=== PATIENT | male | born 1940 | race Caucasian/White ===

== ENCOUNTER 2018-12-21 08:52 | Emergency (ER) | payer MEDICARE | END 2018-12-21 10:46 | disposition home or self-care (01) | LOC: EDH 08:52 | DX: J03.90 Acute tonsillitis, unspecified (principal); I10 Essential (primary) hypertension; E78.5 Hyperlipidemia, unspecified | CPT/HCPCS: 87880 ==

== ENCOUNTER 2018-12-23 21:41 | Emergency (ER) | payer MEDICARE ==
[2018-12-23] MEDS ORDERED: DEXAMETHASONE SOD PHOSPHATE 10MG/ML 1ML VIAL ONE (22:36)
[2018-12-23] MEDS ORDERED: ACETAMINOPHEN EXTRA STRENGTH 500 MG TABLET ONE (22:37)
== END 2018-12-24 00:10 | disposition home or self-care (01) ==
LOC: EDSEX 21:41 → EDH 21:41
DX: J04.0 Acute laryngitis (principal); J02.9 Acute pharyngitis, unspecified; I10 Essential (primary) hypertension; E78.5 Hyperlipidemia, unspecified
CPT/HCPCS: 96372; 99283; J1100